=== PATIENT | male | born 1975 | race Hispanic/Latino ===

== ENCOUNTER 2018-03-16 08:19 | Outpatient (CLI) | payer SELFPAY | END 2018-03-16 08:20 | disposition home or self-care (01) | LOC: C.LAB 08:19 | DX: E78.5 Hyperlipidemia, unspecified (principal) ==

== ENCOUNTER 2018-04-27 08:03 | Outpatient (CLI) | payer SELFPAY | END 2018-04-27 08:04 | disposition home or self-care (01) | LOC: C.LAB 08:03 | DX: E71.19 Other disorders of branched-chain amino-acid metabolism (principal) ==